=== PATIENT | female | born 1985 | race Caucasian/White ===

== ENCOUNTER 2019-10-12 02:31 | Emergency (ER) | payer BC, SELFPAY ==
[~2019-10-12] VITALS: Ht 157.5 cm; Wt 113.4 kg
[2019-10-12 02:35] VITALS: BP_SYST 120
--- NOTE | 2019-10-12 02:35 | NUR ---
Patient to ER bed 2 to gown for evaluation. Side rails up. Report given to AUGUST.
--- NOTE | 2019-10-12 02:37 | NUR ---
ER at bedside examining patient.
--- NOTE | 2019-10-12 02:40 | NUR ---
PT AAO AND AMBULATORY C/O ACUTE ABDOMINAL PAIN THAT HAS BEEN WORSENING SINCE YESTERDAY AFTERNOON. PT REPORTS NO RELIEF WITH OTC MEDICATION. PT REPORTS NAUSEA, VOMITING X 5, AND PAIN 8/10. PT HAS H/O GALL STONES.
--- NOTE | 2019-10-12 02:42 | NUR ---
REPORT TO MAYKEL WHO WILL ASSUME CARE.
[2019-10-12] MEDS ORDERED: NACL 0.9% 1,000 ML IV ONE (02:53)
[2019-10-12] MEDS ORDERED: KETOROLAC TROMETHAMINE 30 MG VIAL IVP ONE (03:00)
[2019-10-12] MEDS ORDERED: ONDANSETRON HCL 4 MG/2 ML VIAL IVP ONE (03:00)
--- NOTE | 2019-10-12 03:08 | NUR ---
# 22 gauge angiocath placed to LAC. Use of asceptic technique. Opsite placed over site. Blood return noted. Blood for lab drawn from site. Flushed with 10 cc of normal saline. No evidence of infiltration noted. Patient tolerated well.
[2019-10-12 03:33] LABS: BASOPHILS # (AUTO) 0.1 K/uL (0.0-0.2); BASOPHILS % (AUTO) 0.8 % (0.0-2.0); HEMATOCRIT 36.9 % (36-48); HEMOGLOBIN 12.1 g/dL (12.0-16.0); LYMPHOCYTES # (AUTO) 1.5 K/uL (1.0-5.5); LYMPHOCYTES % (AUTO) 12.3 % (20.5-51.5); MEAN CORPUSCULAR HEMOGLOBIN 27 pg (27-31); MEAN CORPUSCULAR HGB CONC 33 % (32-36); MEAN CORPUSCULAR VOLUME 81 fL (79.0-98.0); MONOCYTES # (AUTO) 0.3 K/uL (0.0-1.0); MONOCYTES % (AUTO) 2.5 % (1.7-9.3); NEUTROPHILS # (AUTO) 10.5 K/uL (1.8-7.7); NEUTROPHILS % (AUTO) 84.4 % (40.0-70.0); PLATELET COUNT (AUTO) 329 K/uL (130-430); RED BLOOD CELL COUNT(AUTO) 4.57 MIL/uL (4.2-6.2); RED CELL DISTRIBUTION WIDTH 15.7 % (9.0-15.0); WHITE BLOOD COUNT (AUTO) 12.4 K/uL (4.8-10.8)
[2019-10-12] MEDS ORDERED: MORPHINE 2 MG/ML INJ. SYRINGE IVP ONE (04:00)
[2019-10-12 04:01] LABS: CALCIUM 8.2 mg/dL (8.4-11.0); CREATININE 0.74 mg/dL (0.55-1.30); POTASSIUM 3.7 mmol/L (3.5-5.1)
[2019-10-12 04:04] LABS: PROTHROMBIN TIME 10.3 SECS (9.5-12.5)
[2019-10-12 04:07] LABS: ALBUMIN 3.1 g/dL (3.4-4.8); TOTAL BILIRUBIN 0.3 mg/dL (0.0-1.0)
--- NOTE | 2019-10-12 04:40 | NUR ---
Pt taken to CT scan,accompained by mechatronics technician Tammy via Can
--- NOTE | 2019-10-12 05:08 | NUR ---
Pt returned from CT, stable condition.
[2019-10-12 05:35] LABS: BILIRUBIN,URINE NEGATIVE (NEGATIVE); BLOOD, URINE NEGATIVE (NEGATIVE); CLARITY/URINE SL CLOUDY (CLEAR); COLOR,URINE YELLOW (YELLOW); GLUCOSE,URINE NEGATIVE (NEGATIVE); KETONES,URINE NEGATIVE (NEGATIVE); LEUKOCYTE ESTERASE ,URINE NEGATIVE (NEGATIVE); NITRITE, URINE NEGATIVE (NEGATIVE); PROTEIN URINE NEGATIVE (NEGATIVE); UROBILINOGEN,URINE 0.2 (0.2-1.0)
--- NOTE | 2019-10-12 05:57 | NUR ---
Patient resting, easily aroused. Symmetric chest and rise fall. No complaints at this time.
[2019-10-12] MEDS ORDERED: MAG HYDROX/AL HYDROX/SIMETH 30 ML, LIDOCAINE VISCOUS 2% 15ML (PO) 10 ML, DICYCLOMINE HC... PO ONE ×3 (06:00)
[2019-10-12 06:29] VITALS: BP_SYST 117
--- NOTE | 2019-10-12 06:29 | NUR ---
Patient given written and verbal discharge instructions and verbalizes understanding. ER MD discussed with patient the results and treatment provided. Patient in stable condition. ID arm band removed. IV catheter removed intact and dressing applied, no active bleeding. Rx of Protonix given. Patient educated on pain management and to follow up with PMD. Opportunity for questions provided and answered. Medication side effect fact sheet provided.
== END 2019-10-12 06:29 | disposition home or self-care (01) ==
LOC: SED 02:31
DX: K29.70 Gastritis, unspecified, without bleeding (principal); R11.2 Nausea with vomiting, unspecified; Z20.828 Contact with and (suspected) exposure to other viral communicable diseases
CPT/HCPCS: 36415; 74176; 80053; 81003; 82150; 83690; 84702; 85025; 85610; 96361; 96374; 96375; 99284; J1885; J2001; J2270; J2405; J7030; U0003; C9803-CS